=== PATIENT | male | born 1990 | race American Indian/Alaskan Native ===

== ENCOUNTER 2021-09-05 23:53 | Emergency (ER) | payer SELFPAY ==
[2021-09-06 00:26] VITALS: BP 147/78
--- NOTE | 2021-09-06 03:01 | Emergency Department Report ---
Burn HPI - History Stated Complaint: BURN ON HAND Chief Complaint: Burn/Smoke Inhalation Duration of Burn: 5 Days Burn Location: Other (right hand) Burn Etiology: Scald (hot grease) Pain: Moderate Tetanus Status: Up to Date Symptoms:: Yes Able to Tolerate Fluids, No Blistering, No Malaise, No Myalgias, No Fever, No Vomiting Other History: Patient is a 31-year-old -[place] male with no past medical history presents to the ED with complaint of acute onset persistent dorsal right hand pain after being scalded by hot grease at work 5 days ago. Patient states that the pain is especially worse with any movement and that the pain radiates proximally to his right forearm. Patient denies blistering of the burn, nausea, vomiting, fever, chills, numbness and tingling or weakness of right hand. - Home Meds and Allergies Home Medications: Previous Rx's Medication Instructions Recorded Last Taken Type Ibuprofen [Motrin] 800 mg PO Q8HR PRN #30 tablet 09/06/21 Unknown Rx Allergies/Adverse Reactions: Allergies Allergy/AdvReac Type Severity Reaction Status Date / Time No Known Allergies Allergy Unverified 09/06/21 00:26 ED Review of Systems ROS: Stated complaint: BURN ON HAND Other details as noted in HPI Constitutional: denies: chills, fever Eyes: denies: eye pain, eye discharge, vision change ENT: denies: ear pain, throat pain Respiratory: denies: cough, shortness of breath, wheezing Cardiovascular: denies: chest pain, palpitations Endocrine: no symptoms reported Gastrointestinal: denies: abdominal pain, nausea, diarrhea Genitourinary: denies: urgency, dysuria Musculoskeletal: arthralgia (Right hand pain due to burn with grease). denies: back pain, joint swelling Skin: denies: rash, lesions Neurological: denies: headache, weakness, paresthesias Psychiatric: denies: anxiety, depression Hematological/Lymphatic: denies: easy bleeding, easy bruising ED Past Medical Hx - Medications Home Medications: Home Medications Medication Instructions Recorded Confirmed Last Taken Type Ibuprofen [Motrin] 800 mg PO Q8HR PRN #30 tablet 09/06/21 Unknown Rx Exam - Exam General: Vital signs noted. No distress. Alert and acting appropriately. HEENT: Yes Moist Mucous Membranes, No Conjuctival Injection, No Corneal Edema Skin: Yes Tenderness (Dorsal right hand), No Erythroderma, No Blistering, No Edema Exam: Yes Normal Heart Sounds, Yes Musculoskeletal Pain (Palpable dorsal right hand tenderness), No Respiratory Distress, No Sensory Deficits Exam: Otherwise unremarkable physical exam ED Course Vital Signs 09/05/21 23:54 Temperature 98.5 F Pulse Rate 76 Respiratory 18 Rate Blood Pressure 147/78 [Right] O2 Sat by Pulse 100 Oximetry ED Medical Decision Making - Medical Decision Making This is a 31-year-old -[place] male with no past medical history presents to the ED with complaint of acute onset persistent dorsal right hand pain after being scalded by hot grease at work 5 days ago. Patient states that the pain is especially worse with any movement and that the pain radiates proximally to his right forearm. In the ED, patient is alert and oriented x3 and is not in any distress. Physical exam is unremarkable, no blistering or open wounds of the patient dorsal right hand. The burn injury was likely first- degree burn. Patient was discharged home on medications for pain and advised to follow-up with his primary care physician in 7 to 10 days for evaluation. Patient was advised return to the ED immediately if symptoms get worse. - Differential Diagnosis First-degree burn; burn injury; tendinitis; muscle strain; Critical care attestation.: If time is entered above; I have spent that time in minutes in the direct care of this critically ill patient, excluding procedure time. ED Disposition Clinical Impression: First degree burn of right hand including fingers Qualifiers: Encounter type: initial encounter Qualified Code(s): T23.101A - Burn of first degree of right hand, unspecified site, initial encounter; T23.131A - Burn of first degree of multiple right fingers (nail), not including thumb, initial encounter Injury of right hand Qualifiers: Encounter type: initial encounter Qualified Code(s): S69.91XA - Unspecified injury of right wrist, hand and finger(s), initial encounter Disposition: HOME / SELF CARE / HOMELESS Is pt being admited?: No Does the pt Need Aspirin: No Condition: Stable Instructions: Burn Care, Adult, [id number] Additional Instructions: Take pain medication as needed, drink plenty of fluids, follow-up with your primary care physician in 7 to 10 days for reevaluation. Return to the ED immediately if symptoms get worse. Prescriptions: Ibuprofen [Motrin] 800 mg PO Q8HR PRN #30 tablet PRN Reason: Pain , Severe (7-10) Referrals: [facility] [Provider Group] - 3-5 Days Forms: Work/School Release Form(ED) Time of Disposition: 03:01 Print Language: KOREAN
== END 2021-09-06 06:37 | disposition home or self-care (01) ==
LOC: ED 23:53
DX: T23.121A Burn of first degree of single right finger (nail) except thumb, initial encounter (principal); X08.8XXA Exposure to other specified smoke, fire and flames, initial encounter; Y93.89 Activity, other specified; Y92.89 Other specified places as the place of occurrence of the external cause; Y99.8 Other external cause status
CPT/HCPCS: 99282